=== PATIENT | female | born 1980 | race Two or more races ===

== ENCOUNTER 2020-08-28 05:42 | Day surgery (SDC) | payer BC, MEDICAID ==
[2020-08-25 13:06] LABS: HEMATOCRIT 30.3 % (36.0-47.0); HEMOGLOBIN 9.9 g/dL (12.0-15.5); MEAN CORPUSCULAR HEMOGLOBIN 21.3 pg (27.0-33.4); MEAN CORPUSCULAR HGB CONC 32.7 g/dL (32.0-36.0); MEAN CORPUSCULAR VOLUME 65 fl (80-97); PLATELET COUNT 281 10^3/uL (150-450); RED BLOOD COUNT 4.64 10^6/uL (3.72-5.28)
[2020-08-25 13:09] LABS: APPEARANCE,URINE CLEAR; BILIRUBIN,URINE NEGATIVE (NEGATIVE); COLOR,URINE YELLOW; GLUCOSE, URINE NEGATIVE (NEGATIVE); KETONES,URINE NEGATIVE (NEGATIVE); LEUKOCYTE ESTERASE,URINE NEGATIVE (NEGATIVE); NITRITE,URINE NEGATIVE (NEGATIVE); PROTEIN,URINE NEGATIVE (NEGATIVE); URINE SPECIFIC GRAVITY 1.026
[~2020-08-28 05:42] MED LIST: CEFAZOLIN 1 GM/D5W RTU 1 GM/50 ML RTUPB IV ONE; CEFAZOLIN 1 GM/D5W RTU 1 GM/50 ML RTUPB IV PRN; LACTATED RINGERS 1000 ML IV PRN; LIDOCAINE 0.5% INJ-PF (5 MG/ML) 50 ML SDV SUBCUT PRN; METRONIDAZOLE 500 MG/NS RTU 500 MG/100 ML RTUPB IV ONE; METRONIDAZOLE 500 MG/NS RTU 500 MG/100 ML RTUPB IV PRN
[2020-08-28] MEDS ORDERED: EPHEDRINE SULFATE INJ 50 MG/1 ML AMPULE ONE (06:52)
[2020-08-28] MEDS ORDERED: HYDROMORPHONE HCL INJ/PF 2 MG/ML AMPULE ONE (06:52)
[2020-08-28] MEDS ORDERED: MIDAZOLAM 2 MG/2 ML INJ ONE (06:52)
[2020-08-28] MEDS ORDERED: FENTANYL CITRATE INJ/PF 250 MCG/5 ML AMPULE ONE (06:52)
[2020-08-28] MEDS ORDERED: PROPOFOL INJ 200 MG/20 ML VIAL IV ONE (06:53)
[2020-08-28] MEDS ORDERED: BUPIVACAINE INJ/PF LIPOSOME/PF 266 MG/20 ML SDV ONE (07:21)
--- NOTE | 2020-08-28 08:24 | Operative Report ---
Nonrecallable Operative Report DATE OF SURGERY: 08/28/20 PREOPERATIVE DIAGNOSIS: Patient has an umbilical hernia and also the question of a bilateral tubal ligation using cautery POSTOPERATIVE DIAGNOSIS: Same OPERATION: Patient has a umbilical hernia repair. Also a laparoscopic bilateral tubal cautery. SURGEON: BAYLEE LALA ANESTHESIA: GA TISSUE REMOVED OR ALTERED: Fallopian tubes COMPLICATIONS: None ESTIMATED BLOOD LOSS: Minimal INTRAOPERATIVE FINDINGS: Normal uterus tubes ovaries PROCEDURE: Patient was taken the OR and placed in supine position. General anesthesia was induced. She is placed in dorsolithotomy position using Gaurang stirrups. Her abdomen perineum vagina were prepared and draped in sterile fashion. She had just voided prior to the procedure and did not need catheterization. A sponge stick was placed in the vagina. General surgery open the bellybutton and placed the laparoscope. Gynecology then cauterized each fallopian tube starting at the mid isthmic portion moving back toward the uterine cornu with 5 successive bites. Photos were taken at the end of the case. At this point I stepped away from the procedure and general surgery completed the umbilical hernia repair. Please see the general surgery note.
[2020-08-28] MEDS ORDERED: SUGAMMADEX SODIUM 200 MG/2 ML SDV IV ONE (08:26)
[2020-08-28] MEDS ORDERED: PROMETHAZINE HCL INJ 25 MG/1 ML VIAL IV PRN ×2 (08:29)
[2020-08-28] MEDS ORDERED: MEPERIDINE HCL/PF INJ 25 MG/1 ML DISP.SYRIN IV PRN (08:29)
[2020-08-28] MEDS ORDERED: MORPHINE SULFATE 10 MG/ML INJ IV PRN (08:29)
[2020-08-28] MEDS ORDERED: OXYCODONE-ACETAMINOPHEN 5-325 MG TABLET PO PRN ×2 (08:29)
[2020-08-28] MEDS ORDERED: FENTANYL CITRATE INJ/PF 100 MCG/2 ML AMPUL IV PRN ×3 (08:29)
[2020-08-28] MEDS ORDERED: DIPHENHYDRAMINE HCL 50 MG/ML VIAL IV PRN (08:29)
--- NOTE | 2020-08-28 08:39 | Operative Report ---
Nonrecallable Operative Report DATE OF SURGERY: 08/28/20 PREOPERATIVE DIAGNOSIS: Umbilical hernia POSTOPERATIVE DIAGNOSIS: Umbilical hernia OPERATION: Umbilical herniorrhaphy SURGEON: RAVI LEMUS [employer] ASSOCIATE: RYAN HOUSE ANESTHESIA: GA TISSUE REMOVED OR ALTERED: None COMPLICATIONS: None ESTIMATED BLOOD LOSS: 5 cc INTRAOPERATIVE FINDINGS: See note PROCEDURE: Procedure patient was brought to the operating room awake alert stable condition placed on the operative table supine position and then intubated. She was then placed up in a lithotomy position for a tubal ligation that would be performed by Dr. Paul. After appropriate timeout and site verification the procedure commenced. Using a 15 blade a curvilinear incision was made in the infraumbilical crease and dissection was carried out through subcutaneous tissue with Bovie cautery We then encircled the a local stalk with a right angle clamp and placed a umbilical tape around that. We then dissected the umbilical stalk off the hernia defect with Bovie cautery. This gave access to Dr. Paul for his port placement and the tubal ligation which will be dictated in a separate note. After completion of the tubal ligation by Dr. Paul the umbilical defect which was about a centimeter and half in diameter was closed with interrupted placed 0 Vicryl sutures placed in a Smead Arreguin fashion. The umbilical stalk was then tacked back down to the anterior abdominal fascia with a 2-0 Vicryl The subcutaneous tissues were reapproximated interrupted placed 3-0 Vicryl skin was closed with intracuticular 4-0 Biosyn Steri-Strips completed the procedure. As estimated blood loss was less than 5 cc sponge needle counts correct x2. TY Joy was present for the entire procedure for help with wound retraction wound closure.
[2020-08-28] MEDS ORDERED: HYDROCODONE/ACETAMINOPHEN 10-325 MG TABLET PO PRN (08:42)
--- NOTE | 2020-08-28 08:42 | Discharge Summary ---
Discharge Summary (SDC) - Discharge Final Diagnosis: Umbilical hernia Date of Surgery: 08/28/20 Condition: Good Forms: ASU Anesthesia D/C Instruction, Discharge POC-Surgical Service Prescriptions: Hydrocodone/Acetaminophen [[place] 10-325 mg Tablet] 1 tab PO Q6HP PRN #15 tablet PRN Reason: Referrals: RAVI KUMAR MD [ACTIVE STAFF] - BAYLEE LALA MD [Primary Care Provider] - Discharge Diet: As Tolerated Discharge Activity: No Lifting Over 10 Pounds Report the Following to Your Physician Immediately: Vomiting, Increase in Pain, Unusual Bleeding - appoint with me in 7-10 days
[2020-08-28] MEDS ORDERED: HYDROCODONE/ACETAMINOPHEN 10-325 MG TABLET ONE (09:09)
[2020-08-28 12:19] VITALS: BP 124/81
[2020-08-28] MEDS ORDERED: SUCCINYLCHOLINE CHLORIDE INJ 200 MG/10 ML VIAL ONE (13:23)
[2020-08-28] MEDS ORDERED: ROCURONIUM BROMIDE INJ 50 MG/5 ML VIAL IV ONE (13:23)
[2020-08-28] MEDS ORDERED: GLYCOPYRROLATE 1 MG/5 ML VIAL ONE (13:23)
[2020-08-28] MEDS ORDERED: ONDANSETRON HCL INJ/PF 4 MG/2 ML SDV ONE (13:23)
[2020-08-28] MEDS ORDERED: DIPHENHYDRAMINE HCL 50 MG/ML VIAL ONE (13:23)
[2020-08-28] MEDS ORDERED: DEXAMETHASONE SOD PHOSPHATE INJ 4 MG/1 ML VIAL ONE (13:23)
[2020-08-28] MEDS ORDERED: NEOSTIGMINE METHYLSULFATE 10 MG/10 ML VIAL ONE (13:23)
== END 2020-08-28 11:15 | disposition home or self-care (01) ==
LOC: OROUT 05:42
PROVIDERS: ATTEND Obstetrics & Gynecology
DX: K42.9 Umbilical hernia without obstruction or gangrene (principal); Z30.2 Encounter for sterilization; Z03.818 Encounter for observation for suspected exposure to other biological agents ruled out
CPT/HCPCS: 36415; 85027; 81005; 81025; 49585; 58670; U0003; J2250; J0690; J3490 ×4; J1100; J1200; J3010; J2710; J0330; J2405; J2704; C9290; C9803; 840; 87635; J1170